=== PATIENT | female | born 1965 | race Caucasian/White ===

== ENCOUNTER → 2025-04-19 12:18 | Outpatient (REF) | payer OTHER, SELFPAY | LOC: RAD 12:18 | PROVIDERS: ATTENDING PHYSICIAN Surgery; FAMILY PHYSICIAN Family Medicine | DX: K43.2 Incisional hernia without obstruction or gangrene (principal); K46.9 Unspecified abdominal hernia without obstruction or gangrene | CPT/HCPCS: 74177; Q9967 ==

== ENCOUNTER 2025-07-21 04:31 | Inpatient (IN) | payer OTHER, SELFPAY ==
[2025-07-20 22:28] VITALS: BMI 19.2
[2025-07-20 22:35] VITALS: BP 107/68
--- NOTE | 2025-07-20 23:55 | ED.GENMED ---
History of Present Illness
General
Chief Complaint: Abdominal Pain
Source: patient
Exam Limitations: none
Time Seen by Provider: 07/20/25 23:48
Nursing documentation reviewed up to this point in time: agreed with
History of Present Illness
History of Present Illness:
Patient to emergency department with complaint of severe upper abdominal pain. She states her symptoms started this morning. She has had multiple SBO in the past and feels her symptoms are very similar. She denies any fever or chills. She
reports nausea and vomiting. She has past medical history of colon cancer 2016. She has a colostomy. Reports very little output from colostomy currently. Brought to the emergency department by spouse for evaluation.
Past History
Past History
ED Past Medical History: Cancer (Colon cancer 2016), Other (Migraines) and Other (Colon cancer with bowel resection 2003, colostomy and reversal, radiation and chemotherapy, recurrent small bowel obstructions)
ED Past Surgical History: Cholecystectomy
Social History
Tobacco: Non-smoker
Alcohol: None
Personal:
Family History
Family History: Other (Colon cancer in a grandfather)
Review of Systems
Review of Systems
Allergies reviewed?: Yes
All Other Systems: ROS reviewed and negative except as documented in HPI and ROS
Constitutional: Reports no symptoms
EENT: Reports no symptoms
Respiratory: Reports no symptoms
Cardiac: Reports no symptoms
ABD/GI: Reports abdominal pain (Upper abdominal pain), nausea and vomiting
: Reports no symptoms
Musculoskeletal: Reports no symptoms
Skin: Reports no symptoms
Neurological: Reports no symptoms
Psychiatric: Reports no symptoms
Phy Exam
General Physical Exam
General Presentation: moderate distress
General age: appears stated age
General Skin: warm and dry
General Habitus: normal
General Mental: alert
Cardiovascular Exam
Cardiovascular Exam: regular rate/rhythm and no edema
Gastrointestinal Exam
Gastrointestinal Exam: normal bowel sounds, soft, no organomegaly, no pulsatile mass and non distended
Palpation: left upper quadrant: Moderate tenderness, left lower quadrant: Mild tenderness, right upper quadrant: Moderate tenderness and right lower quadrant: Mild tenderness
Musculoskeletal Exam
Musculoskeletal Exam: full ROM and neuro vasc intact
Skin Exam
Skin Exam: normal color, warm/dry and no rash
Psychiatric Exam
Psychiatric Exam: normal mood/affect
Course
Orders/Labs/Results
Orders:
Orders
07/20/25 23:49
Urinalysis Reflex To Culture Urgent
Date Specimen was Collected: 07/21/25
Time Specimen was Collected: 02:43
07/20/25 23:54
0.9% Sodium Chloride 1000 ml [Nss] 1,000 ml IV BOLUS
HYDROmorphone [Dilaudid] 0.5 mg IV NOW STA
Ondansetron Injectable [Zofran] 4 mg IV NOW STA
07/20/25 23:56
Complete Blood Count/With Diff Urgent
Comprehensive Metabolic Panel Urgent
Lipase Urgent
07/21/25 00:00
CT Abd/pelvis W Iv Cont Urgent
Reason For Exam: abdominal pain
07/21/25 02:48
Urine Microscopic Reflex Cult Urgent
07/21/25 04:15
HYDROmorphone [Dilaudid] 0.5 mg IV NOW STA
CR Chest Portable - 1 View Urgent
Comment:
Reason For Exam: check nasogastric tube positioning
Reason Study Needs to be Portable: Unable to Transport
07/21/25 04:24
Admit/Transfer Patient As Directed
Co-Sign Provider:
Level of Care: Inpatient admission
Assign to:: Medical/Surgical
Physician / Group: Zaheer
Diagnosis: Small bowel obstruction
Reason for Hospitalization: Small bowel obstruction
Expected length of stay greater than two midnights?: Yes
ELOS- Estimated Length of Stay in days: 2
I certify the patient meets the requirements for IP care: Yes
PRN Pain Medication Management As Directed
May give lesser potent ordered pain med per pt: Yes
preference::
Protocol:: Medication orders for pain may be administered in a
manner that supports deferring to patient preference
when the pt is:
- Requesting an ordered lesser potent pain medication.
Least to most potent pain medications are defined
as: acetaminophen < NSAID < tramadol < opioids
(morphine, oxycodone, hydromorphone).
- Requesting a lesser dose of the same medication IF
ORDERED.
- Requesting a less intrusive route of administration
if both routes are prescribed by the provider (PO <
IV).
07/21/25 04:25
Code Status As Directed
Resuscitation Status: Full Code
07/21/25 Breakfast
NPO
Allow oral meds: No
Allow clear liquids: Sips of Clears
07/21/25 06:27
Acetaminophen [Tylenol/Feverall] 650 mg RECTAL Q4HPRN PRN
Acetaminophen [Tylenol] 650 mg PO Q4HPRN PRN
Dextrose 5%/Lactringers 1000ML [D5lr] 1,000 ml IV 90 mls/hr
Ketorolac [Toradol] 10 mg IV Q6HPRN PRN
Ondansetron Injectable [Zofran] 4 mg IV Q6HPRN PRN
07/21/25 06:27
Activity As Directed
Activity Level: With Assistance
Intake/ Output As Directed
Frequency: Per unit guidelines
NG Tube [Gastrointestinal Tubes] As Directed
To suction?: Yes
Type of suction: Low intermittent
Vital Signs As Directed
Frequency: Per unit guidelines
Pulse Ox/spot Check [RESP] Routine
Quantity: 1
DX Deep Vein Thrombosis Video Routine
07/21/25 08:00
HYDROmorphone [Dilaudid] 0.5 mg IV Q4HPRN PRN
07/21/25 18:00
Enoxaparin Sodium [Lovenox] 40 mg SC QPM
07/22/25 07:38
Basic Metabolic Panel IN AM
Complete Blood Count/No Diff IN AM
Abnormal Lab Results
07/20/25 07/21/25
23:56 02:48
Absolute Lymphs (auto) 0.9 L 10^3/uL
(1.2-3.4)
Neutrophils % 80.1 H %
(42.2-75.2)
Lymphocytes % 12.0 L %
(20.5-51.1)
BUN 24 H mg/dl
(7-17)
Glucose 112 H mg/dl
(70-99)
Total Bilirubin 2.3 H mg/dl
(0.2-1.3)
Urine Ketones 3+ A
(Negative)
Urine Albumin (Reflex) 2+ A
(Neg - Trace)
07/20/25 23:56
07/20/25 23:56
Vital Signs
Initial and Last Documented VS:
Initial Vital Signs
Temp Pulse Resp BP Pulse Ox
98.1 F 92 18 107/68 98
07/20/25 22:35 07/20/25 22:35 07/20/25 22:35 07/20/25 22:35 07/20/25 22:35
Last Documented Vital Signs
Temp Pulse Resp BP Pulse Ox
97.9 F 72 16 110/69 99
07/22/25 15:30 07/22/25 15:30 07/22/25 15:30 07/22/25 15:30 07/22/25 15:30
*Radiology
Radiology exam reviewed: radiology read reviewed
*Pulse Oximetry
SaO2: 95
Oxygen Mode of Delivery: Room air
Patient hypoxic: no
*Critical Care Note
Total Time (30-74mins, 75-104mins- exclusive of procedures): Not Applicable
Update Note
Update Note:
Patient to the emergency department for evaluation of abdominal pain and vomiting. Symptoms started this a.m. and continue to worsen. She has a history of SBO in the past and feels her symptoms are similar. Vital signs are stable she remains
afebrile. Labs reviewed. CBC within normal limits. CMP with T. bili of 2.3. (Prior cholecystectomy). UA results are pending. CT of abdomen and pelvis was completed, report was reviewed. ' Fluid-filled small bowel loops dilated with clustered
and tethered small bowel in the pelvis likely underlying adhesions causing partial small bowel obstruction'. Discussed findings with patient. She will be admitted to the hospitalist service. She was given IV fluids and pain medications and the ED
and is resting comfortably. No vomiting while in ED.
ED Attending Note
-
Portions of this chart may have been created with voice recognition software.� Occasional wrong word or��sound alike� substitutions may have occurred due to the inherent limitations of voice recognition software.
Discharge Plan
Departure
Patient Disposition: Admit
Date of Disposition: 07/21/25
Time of Disposition: 02:51
Presentation/result/management discussed w/ accepting MD/DO: Hospitalist
Patient with high blood pressure during this ER visit?: No
Condition: Fair
Discharge Problem:
Partial small bowel obstruction
Interventions
Interventions:
*Risk Screen - Suicide Last Done: 07/20/25 22:35
*General Assessment Last Done: 07/20/25 22:35
*Neglect/Abuse Screening Last Done: 07/20/25 22:35
*ED COVID-19 Vaccine History Last Done: 07/20/25 23:00
*ED Influenza Vaccine History Last Done: 07/20/25 23:00
[facility] Risk Assessment Tool Last Done: 07/20/25 22:28
*Nursing Disposition Last Done: 07/21/25 06:28
SD-Iagqwg-Flimyyykel Assessment Last Done: 07/20/25 23:00
Discharge Date and Time
Discharge Date/Time: 07/21/25 06:28
[2025-07-21] VITALS (9 sets, daily range): BP systolic 87–123; BP diastolic 57–80
[2025-07-21] MEDS: NSS 1000 IV (00:01)
[2025-07-21 00:09] LABS: Hematocrit 38.3 % (37.0-47.0); Hemoglobin 13.3 g/dL (12.0-16.0); Mean Corp Hgb Conc. 34.7 g/dL (33.0-37.0); Mean Corpuscular Volume 83.3 fL (81.0-99.0); Nucleated Red Blood Cells % 0 %; Platelet Count 249 10^3/uL (130-400); Red Cell Dist. Width 12.1 % (11.5-14.5)
[2025-07-21 00:34] LABS: ALT (SGPT) 14 U/L (0-35); AST (SGOT) 24 U/L (14-36); Albumin 4.3 g/dl (3.5-5.0); Alkaline Phosphatase 73 U/L (38-126); Blood Urea Nitrogen 24 mg/dl (7-17); Calcium 9.5 mg/dl (8.4-10.2); Carbon Dioxide 27 mmol/L (22-30); Chloride 106 mmol/L (98-107); Estimated Creatinine Clearance 71 ml/min; Glucose 112 mg/dl (70-99); Lipase 79 U/L (23-300); Potassium 4.2 mmol/L (3.5-5.1); Sodium 137 mmol/L (135-145); Total Protein 6.7 g/dl (6.3-8.2); eGFR > 60.00
[2025-07-21 02:53] LABS: Urine Character Clear (Clear)
--- NOTE | 2025-07-21 04:01 | HPS.HSE ---
Family Physician
-
Family Physician: Alec Whitney MD
Chief Complaint
-
Abdominal pain
History of Present Illness
This is a 59-year-old female with past medical history significant for colon cancer status post hemicolectomy, colostomy and reversal, radiation and chemotherapy, recurrent small bowel obstructions, migraine headaches presenting to the emergency
department with acute episode of abdominal pain.
Patient reports that her kids CVA with abdominal pain associated with green emesis. She denied any diarrhea. She is any fevers or chills. She reports the pain is similar to episode when she had a small bowel obstruction in the past. She has had
multiple recurrent episodes of small bowel obstructions. She says she frequently gets them and manage she is at home and the last time she had to be hospitalized for small bowel obstruction was several years ago. She is still having abdominal pain
has been speaking despite Dilaudid in the ED.
In the emergency department she was afebrile, blood pressure 123/80 with a pulse of 68 and she was satting 98% on room air.
CBC was unremarkable stop electrolyte BUN/creatinine were all in normal range. LFTs were normal. Lipase was normal.
CT scan shows fluid filled small bowel loops dilated to 3.9 cm with clustered and tethered small bowel in in pelvis likely underlying adhesions causing partial small bowel obstruction. Small bowel resection with anastomosis in the left abdomen. No
pneumatosis or free air.
Medical History
Past Medical History
Past Medical History: Reports Cancer (Colon cancer ) and Other (Migraine)
Additional Past Medical History:
History of recurrent small bowel obstructions
Past Surgical History: Reports Bowel Resection (Bowel resection 2003, colostomy with reversal), Cholecystectomy and Gynocological (She will ligation)
Additional Past Surgical History:
Small ventral incisional hernia,
Social History
Tobacco: Non-smoker
Alcohol: None
Drug: None
Personal:
Living: With Family
Family History
Family History: Not pertinent
Allergies / Home Medications
Allergies reflects when Allergies were last updated in [facility].
Home Medications with original date entered in [facility]
Allergy/Medication List:
Allergies
Allergy/AdvReac Type Severity Reaction Status Date / Time
No Known Allergies Allergy Verified 06/10/19 08:28
Home Medications
ibuprofen 600 mg tablet 600 mg PO Q6HPRN PRN pain 11/16/16
metoclopramide HCl 10 mg tablet 10 mg PO PRN PRN nausea 11/16/16
ondansetron 4 mg disintegrating tablet 4 mg PO Q8HPRN PRN nausea 12/19/16
pantoprazole 20 mg tablet,delayed release (Protonix) 20 mg PO DAILY 12/19/16
sumatriptan 85 mg-naproxen 500 mg tablet (Treximet) 1 ea PO DAILY PRN migraines 12/19/16
sumatriptan succinate 50 mg tablet 50 mg PO PRN PRN migraines 12/19/16
prochlorperazine maleate 10 mg tablet 10 mg PO Q8HPRN PRN headache and nausea #12 tabs 06/10/19
sumatriptan succinate 50 mg tablet 50 mg PO PRN PRN migraine headache #14 tabs 06/10/19
Review of Systems
-
Constitutional: Reports No Symptoms
EENT: Reports No Symptoms
Respiratory: Reports No Symptoms
Cardiac: Reports No Symptoms
Abdomen/GI: Reports Abdominal Pain, Nausea and Vomiting
: Reports No Symptoms
Musculoskeletal: Reports No Symptoms
Skin: Reports No Symptoms
Neurological: Reports No Symptoms
Endocrine: Reports No Symptoms
Hematologic/Lymphatic: Reports No Symptoms
Psych: Reports No Symptoms
Physical Exam
Vital Signs
Vital Signs
Temp Pulse Resp BP Pulse Ox
97.8 F 68 11 123/80 98
07/21/25 02:51 07/21/25 00:47 07/21/25 00:47 07/21/25 02:42 07/21/25 00:47
Physical Exam
General: Well Developed, Well Nourished and No Apparent Distress
HEENT: NormoCephalic, Moist mucous membranes and Atraumatic
Respiratory: Clear
Cardiac: S1/S2 and Regular Rhythm; No Murmur or Rub
GI: Soft, Tender (Tenderness to palpation in the left lower quadrant), No Hepatosplenomegaly and Ostomy (decompressed ostomy bag); No Normal Bowel Sounds (Patient with somewhat normal active bowel sounds in the right upper quadrant but reduced bowel
sounds in the right lower quadrant left upper quadrant and left lower quadrant), Organomegaly or No Hernias
Rectal: Deferred by Provider
Genito-urinary: Deferred by me
Musculoskeletal: No Clubbing, No Cyanosis and No Edema
Skin: No Rash
Neuro: AO x 3 and Nonfocal/grossly intact
Hematologic/Lymphatic: No Lymphadenopathy
Laboratory Results
-
07/20/25 23:56
07/20/25 23:56
Laboratory Results
Total Bilirubin 2.3 mg/dl (0.2-1.3) H 07/20/25 23:56
AST 24 U/L (14-36) 07/20/25 23:56
ALT 14 U/L (0-35) 07/20/25 23:56
Alkaline Phosphatase 73 U/L (38-126) 07/20/25 23:56
Lipase Cancelled 07/20/25 23:58
Data Reviewed
-
CT Scan: Report Reviewed by me
Lab Data: Labs Reviewed by me
Old Records: Reviewed
Impression/Plan
-
IMPRESSION:
59-year-old with past medical history significant for colon cancer s/p resection, colostomy and reversal with failure of reversal and status post colostomy again, history of recurrent small bowel obstructions status post small bowel resection and
reanastomosis, presents to the emergency department with acute abdominal pain and tenderness with decreased p.o. intake, bilious emesis and found to have small bowel obstruction. CT scan is consistent with small bowel obstruction, likely partial at
this time and no transition point identified. Patient's exam is moderate with from abdomen, no rebound or guarding, there is decreased bowel sounds and a decompressed colostomy bag although there is stool in the residual colon.
PLAN:
Small bowel obstruction/partial small bowel obstruction
-Admit to MedSurg
-N.p.o. for now
-Pain control and antiemetics
-NG tube to low intermittent suction
-IV fluids
-Serial examinations
-General Surgery consult
DVT prophylaxis�Lovenox subcu
CODE STATUS�full code
[2025-07-21] MEDS: DILAUDID 0.5 MG IV ×4 (04:24→18:09)
[2025-07-21 05:05] LABS: Urine Red Blood Cell 0-2 /HPF (0-2); Urine White Cell 0-2 /HPF (0-5)
[2025-07-21] MEDS: TORADOL 10 MG IV (07:24)
[2025-07-21] MEDS: D5LR 1000 IV ×2 (07:24→18:10)
[2025-07-21] MEDS: IMITREX 6 MG SC (12:01)
--- NOTE | 2025-07-21 12:16 | CON.GS ---
Consultation
-
Date/Time Consultation Performed: 07/21/25 1015
Medical History
-
Chief Complaint: n/v
History of Present Illness:
Ms Deleon is a 59 yo female with a complicated surgical history secondary to rectal cancer with prior LAR and loop colostomy creation at [facility] in 2013 which was complicated by small bowel enterotomy with take back to the OR for exploratory laparotomy
and small bowel resection. She developed abscess and was managed with drains. She subsequently had chemo and XRT for her cancer and was then taken for colostomy reversal in 2014. Her recovery was again complicated and she was taken back to the OR
for colostomy creation once again. Her most recent colonoscopy was in 2022 and was without recurrence of cancer. Over the years, she has had many small bowel obstructions some requiring hospitalization and some that she has managed at home with
bowel rest. She presents this admission as she is having symptoms of a bowel obstruction but without improvement with her usual management at home. She has not had outputs of flatus/stool from her stoma and she was vomiting bilious emesis with
significant abdominal pain causing her to present. An NGT was placed in the ED with symptomatic relief of nausea. On exam, there is no distention or tenderness now present. The stoma is pink/viable but without flatus/stool in the appliance
currently.
Past Medical History
Past Medical History: Cancer (rectal ca s/p resection with colostomy then chemo/xrt) and Other (migraine, recurrent SBO's)
Past Surgical History: Bowel Resection (LAR with loop colostomy creation in 2013 at [facility], subsequent reversal in 2014 which failed and converted back to colostomy for fecal management ) and Other (EX lap with SBR 2013 for enterotomy from colon
surgery)
Social History
Tobacco: Former Smoker
Alcohol: Occasional
Family History
Family History: Cancer (colon ca in grandfather)
Allergies / Home Medications
Allergy/AdvReac Type Severity Reaction Status Date / Time
No Known Allergies Allergy Verified 06/10/19 08:28
�Medication �Instructions �Recorded �Confirmed �Type
ibuprofen 600 mg tablet 600 mg PO Q6HPRN PRN pain 11/16/16 07/21/25 History
metoclopramide HCl 10 mg tablet 10 mg PO PRN PRN nausea 11/16/16 07/21/25 History
ondansetron 4 mg disintegrating 4 mg PO Q8HPRN PRN nausea 12/19/16 07/21/25 History
tablet
pantoprazole 20 mg tablet,delayed 20 mg PO DAILY 12/19/16 07/21/25 History
release (Protonix)
sumatriptan 85 mg-naproxen 500 mg 1 ea PO DAILY PRN migraines 12/19/16 07/21/25 History
tablet (Treximet)
sumatriptan succinate 50 mg tablet 50 mg PO PRN PRN migraines 12/19/16 07/21/25 History
prochlorperazine maleate 10 mg 10 mg PO Q8HPRN PRN headache and 06/10/19 07/21/25 Rx
tablet nausea #12 tabs
sumatriptan succinate 50 mg tablet 50 mg PO PRN PRN migraine headache 06/10/19 Rx
#14 tabs
Review of Systems
-
History Source: Patient and Family
All other systems: Negative unless noted
A 10 point review of systems was completed, and was negative except as per HPI.
Physical Exam
Vital Signs
Temp Pulse Resp BP Pulse Ox
97.9 F 76 16 87/60 98
07/21/25 07:45 07/21/25 07:45 07/21/25 07:45 07/21/25 07:45 07/21/25 07:45
07/20/25 07/21/25 07/22/25
06:59 06:59 06:59
Actual Weight 52.3 kg
Body Mass Index (BMI) 19.2
Lab Results
07/20/25 23:56
07/20/25 23:56
WBC 7.6 10^3/uL (4.8-10.8) 07/20/25 23:56
Hgb 13.3 g/dL (12.0-16.0) 07/20/25 23:56
Hct 38.3 % (37.0-47.0) 07/20/25 23:56
Plt Count 249 10^3/uL (130-400) 07/20/25 23:56
Abs Immat Gran (auto) 0.0 10^3/uL (0-0.05) 07/20/25 23:56
Neutrophils % 80.1 % (42.2-75.2) H 07/20/25 23:56
Physical Exam
General: Well Developed and Well Nourished
HEENT: Normocephalic and Moist Mucous Membranes
Respiratory: Non Labored Respirations
GI: Soft, Non Tender, Non Distended and Other (NGT light bilous outputs. Stoma to left abdomen pink/viable with flat appliance (no flatus/stool))
Skin: Warm and Dry
Neuro: Awake, Alert and AO x 3
Psych: Calm
Data Reviewed
-
CT Scan: Image Personally Visualized and interpreted, Report Reviewed by me, Discussed with Physician, Discussed with Patient and Discussed with Family
Labs: Labs Reviewed by me, Discussed with Physician, Discussed with Patient and Discussed with Family
Old Records: Reviewed
Assessment / Plan
-
59 yo female with a h/o rectal cancer s/p LAR and colostomy with chemo/xrt with prior ex lap for SBR d/t enterotomy as well as failed reversal of colostomy and recurrent SBO's who presents with n/v/abdominal pain. CT abdomen is consistent with at
least a partial SBO likely secondary to adhesions in the pelvis. Anastomosis appears patent. No pneumatosis or free air. No evidence of bowel threat/compromise. NGT placed in the ED with relief in n/v/pain. No flatus/stool via stoma as of yet.
AFVSS. No leukocytosis.
Plan:
Continue with NGT for decompression
NPO with sips/chips for comfort
Follow stoma outputs/exams
Will follow for improvement with nonoperative measures at this time. If no interval improvement over the next 2 days, will plan PO contrast study to better evaluate.
--- NOTE | 2025-07-21 12:21 | W.PN.HOSP.TC ---
Today's Communication/Plan
-
Decompression
Monitor stoma output
Assessment / Plan
Assessment / Plan
Physical Exam
General: Well Developed and Well Nourished
HEENT: Normocephalic and Moist Mucous Membranes
Respiratory: Non Labored Respirations
GI: Soft, Non Tender, Non Distended and Other (NGT light bilous outputs. Stoma to left abdomen pink/viable with flat appliance (no flatus/stool))
Skin: Warm and Dry
Neuro: Awake, Alert and AO x 3
Psych: Calm
59-year-old with past medical history significant for colon cancer s/p resection, colostomy and reversal with failure of reversal and status post colostomy again, history of recurrent small bowel obstructions status post small bowel resection and
reanastomosis, presents to the emergency department with acute abdominal pain and tenderness with decreased p.o. intake, bilious emesis and found to have small bowel obstruction. CT scan is consistent with small bowel obstruction, likely partial at
this time and no transition point identified. Patient's exam is moderate with from abdomen, no rebound or guarding, there is decreased bowel sounds and a decompressed colostomy bag although there is stool in the residual colon.
PLAN:
Small bowel obstruction/partial small bowel obstruction
-Admit to MedSurg
-N.p.o. for now
-Pain control and antiemetics
-NG tube to low intermittent suction
-IV fluids
-Serial examinations
-General Surgery consult
-Follow stoma outputs/exams
-If no improvement in next two days - obtain CT with oral contrast
Migraines
� Add on sumatriptan as needed
DVT prophylaxis�Lovenox subcu
CODE STATUS�full code
Anticipated Discharge: > 48 hours
Subjective/Interval History
-
Date of Service: July 21, 2025
Abdomen feels less distended, feels slightly better with decompression
Objective Data
-
Labs:
Laboratory Results
07/20/25
23:56
Sodium 137
Potassium 4.2
Chloride 106
Carbon Dioxide 27
BUN 24 H
Creatinine 0.7
Glucose 112 H
Calcium 9.5
Total Bilirubin 2.3 H
AST 24
ALT 14
Alkaline Phosphatase 73
Vital Signs:
Vital Signs
Temp Pulse Resp BP Pulse Ox
97.9 F 76 16 87/60 98
07/21/25 07:45 07/21/25 07:45 07/21/25 07:45 07/21/25 07:45 07/21/25 07:45
I&O
07/20/25 07/21/25 07/22/25
06:59 06:59 06:59
Intake Total 1000 / 1000
Output Total 500 / 500
Balance 500 / 500
Review of Systems
-
History Source: Patient
All other systems: Not reviewed unless documented
Data Reviewed
-
Diagnostic Radiology: Report Reviewed by me
CT Scan: Report Reviewed by me
Labs: Labs Reviewed by me
--- NOTE | 2025-07-21 17:17 | PTCARENOTE ---
While changing her colostomy, pt accidentally pulled out NG tube. Output this shift 150 mls, pain is better, no nausea. Dr. Virgen notified and pt will be observed off NG tube. Hospitalist notified.
[2025-07-21] MEDS: LOVENOX 40 MG SC (18:10)
[2025-07-21] MEDS: ZOFRAN 4 MG IV ×2 (20:23)
[2025-07-22] MEDS: DILAUDID 0.5 MG IV ×3 (03:24→20:15)
[2025-07-22] MEDS: D5LR 1000 IV ×2 (05:39→16:41)
[2025-07-22] MEDS: IMITREX 6 MG SC (07:44)
[2025-07-22 07:45] VITALS: BP 123/80
[2025-07-22 08:03] LABS: Hematocrit 35.0 % (37.0-47.0); Hemoglobin 11.4 g/dL (12.0-16.0); Mean Corp Hgb Conc. 32.6 g/dL (33.0-37.0); Mean Corpuscular Volume 86.8 fL (81.0-99.0); Platelet Count 188 10^3/uL (130-400); Red Cell Dist. Width 11.9 % (11.5-14.5)
--- NOTE | 2025-07-22 08:03 | PTCARENOTE ---
Pt c/o migraine, received MD order to give imitrex now, ordered daily prn. consulted with pharmacist to make sure there are no contraindications for administering within 24 hour period.
[2025-07-22 08:17] LABS: Blood Urea Nitrogen 18 mg/dl (7-17); Calcium 8.8 mg/dl (8.4-10.2); Carbon Dioxide 29 mmol/L (22-30); Chloride 108 mmol/L (98-107); Estimated Creatinine Clearance 71 ml/min; Glucose 104 mg/dl (70-99); Potassium 3.9 mmol/L (3.5-5.1); Sodium 139 mmol/L (135-145); eGFR > 60.00
[2025-07-22] MEDS: TORADOL 10 MG IV (10:19)
--- NOTE | 2025-07-22 12:25 | W.PN.HOSP.TC ---
Today's Communication/Plan
-
CLD - ADAT
Assessment / Plan
Assessment / Plan
Physical Exam
General: Well Developed and Well Nourished
HEENT: Normocephalic and Moist Mucous Membranes
Respiratory: Non Labored Respirations
GI: Soft, Non Tender, Non Distended and Other (NGT light bilous outputs. Stoma to left abdomen pink/viable with flat appliance (no flatus/stool))
Skin: Warm and Dry
Neuro: Awake, Alert and AO x 3
Psych: Calm
59-year-old with past medical history significant for colon cancer s/p resection, colostomy and reversal with failure of reversal and status post colostomy again, history of recurrent small bowel obstructions status post small bowel resection and
reanastomosis, presents to the emergency department with acute abdominal pain and tenderness with decreased p.o. intake, bilious emesis and found to have small bowel obstruction. CT scan is consistent with small bowel obstruction, likely partial at
this time and no transition point identified. Patient's exam is moderate with from abdomen, no rebound or guarding, there is decreased bowel sounds and a decompressed colostomy bag although there is stool in the residual colon.
PLAN:
Small bowel obstruction/partial small bowel obstruction
[facility]
-NGT misplaced 07/21 - was monitored off
-Pain control and antiemetics
-Trial CLD - ADAT
-IV fluids PRN
-Serial examinations
-General Surgery consult
-Follow stoma outputs/exams
-If no improvement in next two days - obtain CT with oral contrast
Migraines
� Add on sumatriptan as needed
DVT prophylaxis�Lovenox subcu
CODE STATUS�full code
Anticipated Discharge: 24 - 48 hours
Subjective/Interval History
-
Date of Service: July 22, 2025
no acute events overnight
Objective Data
-
Labs:
Laboratory Results
07/22/25
07:38
WBC 3.3 L
Hgb 11.4 L
Hct 35.0 L
Plt Count 188 D
Sodium 139
Potassium 3.9
Chloride 108 H
Carbon Dioxide 29
BUN 18 H
Creatinine 0.7
Glucose 104 H
Calcium 8.8
Vital Signs:
Vital Signs
Temp Pulse Resp BP Pulse Ox
98.6 F 76 16 123/80 98
07/22/25 07:45 07/22/25 07:45 07/22/25 07:45 07/22/25 07:45 07/22/25 07:45
I&O
07/21/25 07/22/25 07/23/25
06:59 06:59 06:59
Intake Total 1000 / 1000 2280 / 2280
Output Total 500 / 500 150 / 150
Balance 500 / 500 2130 / 2130
Review of Systems
-
History Source: Patient
All other systems: Not reviewed unless documented
Data Reviewed
-
Diagnostic Radiology: Report Reviewed by me
CT Scan: Report Reviewed by me
Labs: Labs Reviewed by me
--- NOTE | 2025-07-22 12:25 | W.PN.GS2 ---
Today's Communication / Plan
-
trial of clears
Assessment / Plan
-
59-year-old female with a likely adhesive small bowel obstruction. She has a history of rectal cancer requiring chemoradiation followed by resection in 2013 which was complicated by pelvic abscesses/?leak requiring surgical drainage and eventual
colostomy creation. She has had multiple small bowel obstructions over the years.
AFVSS
Labs stable
NGT accidentally dislodged on 07/21, mild nausea intermittently but stoma now producing stool and some flatus
Some residual discomfort remains
Plan:
Trial of clears
IVF
Follow stoma outputs/exams
Will follow for improvement with nonoperative measures at this time
d/w hospitalist at bedside
Subjective Data
-
Date of Service: July 22, 2025
Pt seen and examined at bedside with Dr. Virgen. Occasional nausea but better than previous. No vomiting since NGT accidentally became dislodged. Passing stool and some flatus via stoma now. Some abdominal pain persists to the mid abdomen above the
umbilicus.
Objective Data
-
Intake and Output
07/21/25 07/22/25 07/23/25
06:59 06:59 06:59
Intake Total 1000 / 1000 2280 / 2280
Output Total 500 / 500 150 / 150
Balance 500 / 500 2130 / 2130
Intake:
Oral fluids 120 / 120
IV fluids (Total) 1000 / 1000 2160 / 2160
NSS Bolus 1000 / 1000
Output:
Gastrointestinal tube output ( 500 / 500 150 / 150
Total)
[place] Sump 150 / 150
Other:
Number of approximated MODERATE 1
amounts of urine
Vital Signs
Temp Pulse Resp BP Pulse Ox
98.6 F 76 16 123/80 98
07/22/25 07:45 07/22/25 07:45 12/07/25 07:45 07/22/25 07:45 07/22/25 07:45
Lab Results
07/22/25 07:38
07/22/25 07:38
Calcium 8.8 mg/dl (8.4-10.2) 07/22/25 07:38
Total Bilirubin 2.3 mg/dl (0.2-1.3) H 07/20/25 23:56
AST 24 U/L (14-36) 07/20/25 23:56
ALT 14 U/L (0-35) 07/20/25 23:56
Alkaline Phosphatase 73 U/L (38-126) 07/20/25 23:56
Total Protein 6.7 g/dl (6.3-8.2) 07/20/25 23:56
Albumin 4.3 g/dl (3.5-5.0) 07/20/25 23:56
Physical Exam
-
NAD
ABD soft, tender to mid abd above umbilicus, left abd stoma pink/viable with stool and minimal flatus in appliance
[2025-07-22 15:30] VITALS: BP 110/69
[2025-07-22] MEDS: ZOFRAN 4 MG IV (15:35)
[2025-07-22] MEDS: LOVENOX 40 MG SC (16:41)
[2025-07-22 23:00] VITALS: BP 101/66
[2025-07-23] MEDS: D5LR 1000 IV ×2 (04:53→18:22)
[2025-07-23] MEDS: TORADOL 10 MG IV (06:26)
[2025-07-23 07:00] VITALS: BP 97/62
[2025-07-23 07:43] LABS: Hematocrit 31.7 % (37.0-47.0); Hemoglobin 10.8 g/dL (12.0-16.0); Mean Corp Hgb Conc. 34.1 g/dL (33.0-37.0); Mean Corpuscular Volume 86.8 fL (81.0-99.0); Platelet Count 171 10^3/uL (130-400); Red Cell Dist. Width 11.7 % (11.5-14.5)
[2025-07-23 08:26] LABS: ALT (SGPT) 37 U/L (0-35); AST (SGOT) 57 U/L (14-36); Albumin 3.1 g/dl (3.5-5.0); Alkaline Phosphatase 97 U/L (38-126); Blood Urea Nitrogen 9 mg/dl (7-17); Calcium 8.6 mg/dl (8.4-10.2); Carbon Dioxide 29 mmol/L (22-30); Chloride 105 mmol/L (98-107); Estimated Creatinine Clearance 83 ml/min; Glucose 90 mg/dl (70-99); Potassium 3.5 mmol/L (3.5-5.1); Sodium 138 mmol/L (135-145); Total Protein 5.0 g/dl (6.3-8.2); eGFR > 60.00
--- NOTE | 2025-07-23 08:46 | W.PN.GS2 ---
Addendum entered and electronically signed by Jimmy Renteria MD 07/23/25 13:30:
I saw and examined the patient independently.
The Comic Book Writer's note was reviewed and I agree with the note, assessment and plan except where noted below.
Comment: This is a 59-year-old female who presents with abdominal pain, nausea and decreased ostomy output likely secondary to an adhesive small bowel obstruction in the setting of multiple prior ones all managed nonoperatively.
Will plan for a small bowel follow-through today.
Discussed the natural history of small bowel obstructions as well as both nonoperative and operative options/outcomes.
Routine stoma care.
General surgery will follow along with you.
Original Note:
Today's Communication / Plan
-
SBFT
Assessment / Plan
-
59-year-old female with a likely adhesive small bowel obstruction. She has a history of rectal cancer requiring chemoradiation followed by resection in 2013 which was complicated by pelvic abscesses/?leak requiring surgical drainage and eventual
colostomy creation. The colostomy was subsequently reversed but she had difficulty passing stools and eventually was converted back having a colostomy once more. She has had multiple small bowel obstructions over the years but feels this one has
been the most severe.
AFVSS
Labs stable
NGT accidentally dislodged on 07/21
Intermittent nausea and persistent abdominal discomfort
Stoma with some stool outputs but no flatus
Plan:
Clears for comfort
Will plan SBFT study today to further evaluation
Continue IVF
Follow stoma outputs/exams
Antiemetics/analgesics
Lovenox/SCDs for VTE ppx
Subjective Data
-
Date of Service: July 23, 2025
Pt seen and examined at bedside. Took in small amounts of clears yesterday with nausea yesterday evening. No nausea this morning. upper midline abdominal pain persists, requiring intermittent analgesics. Stoma without flatus, some soft stool in
appliance but not much. Some worsening bloating.
Objective Data
-
Intake and Output
07/22/25 07/23/25 07/24/25
06:59 06:59 06:59
Intake Total 2280 / 2280 1460 / 1460
Output Total 150 / 150
Balance 2130 / 2130 1460 / 1460
Intake:
Oral fluids 120 / 120 400 / 400
IV fluids (Total) 2160 / 2160 1060 / 1060
Output:
Gastrointestinal tube output ( 150 / 150
Total)
[place] Sump 150 / 150
Other:
Number of approximated MODERATE 1 3
amounts of urine
Number of approximated LARGE 2
amounts of urine
Vital Signs
Temp Pulse Resp BP Pulse Ox
98.5 F 70 20 97/62 98
07/23/25 07:00 07/23/25 07:00 07/23/25 07:00 07/23/25 07:00 07/23/25 07:00
Lab Results
07/23/25 07:14
07/23/25 07:14
Calcium 8.6 mg/dl (8.4-10.2) 07/23/25 07:14
Total Bilirubin 1.5 mg/dl (0.2-1.3) H 07/23/25 07:14
AST 57 U/L (14-36) H 07/23/25 07:14
ALT 37 U/L (0-35) H 07/23/25 07:14
Alkaline Phosphatase 97 U/L (38-126) 07/23/25 07:14
Total Protein 5.0 g/dl (6.3-8.2) L D 07/23/25 07:14
Albumin 3.1 g/dl (3.5-5.0) L 07/23/25 07:14
Physical Exam
-
NAD
ABD soft, tender to mid abd above umbilicus, mild right sided distention, left abd stoma pink/viable with minimal stool and no flatus in appliance
[2025-07-23] MEDS: DILAUDID 0.5 MG IV ×3 (09:53→22:09)
[2025-07-23] MEDS: ZOFRAN 4 MG IV (09:58)
--- NOTE | 2025-07-23 11:14 | W.PN.HOSP.TC ---
Today's Communication/Plan
-
SBFT today
follow labs
Assessment / Plan
Assessment / Plan
59yo F with PMHx of migraine, Hx of rectal CA s/p chemo and RT and resection in 2013 with complication of pelvic abscess and possible leak, requiring colostomy, Hx of recurrent SBO came with absent output from stoma and typical abd pain, found with
small bowel dilatation and fluid levels in the central abdomen considered suspicious for a partial small bowel obstruction. NGT dislodged and removed on 07/21/25. Patient remained with mild nausea and small output via colostomy.
A/P:
#Partial SBO
Advance diet as per genSx
currently conservative mgmt
SBPT as per surgical service
IVF
If worsening abd distension or nausea - replace NG tube
Follow and correct electrolytes
check TSH
#Migraines
cont home meds
#MIld anemia
#Mild recurrent leukopenia
monitor with CBC
No overt bleeding
#mild recurrent bilirubinemia
at least since 2016
check direct bili, LDH, retics
#Transaminitis
follow LFT as minimal elevation at this point.
CT with Surgically absent gallbladder. Prominence of the intrahepatic and extrahepatic bile ducts may be related to the previous cholecystectomy
DVT ppx Lovenox
Full code
I have spent at least 58min reviewing hcart, test results, communication with consultnats and providing direct patient care
Anticipated Discharge: > 48 hours
Subjective/Interval History
-
Date of Service: July 23, 2025
Objective Data
-
Labs:
Laboratory Results
07/23/25
07:14
WBC 3.1 L
Hgb 10.8 L
Hct 31.7 L
Plt Count 171
Sodium 138
Potassium 3.5
Chloride 105
Carbon Dioxide 29
BUN 9
Creatinine 0.6
Glucose 90
Calcium 8.6
Total Bilirubin 1.5 H
AST 57 H
ALT 37 H
Alkaline Phosphatase 97
Vital Signs:
Vital Signs
Temp Pulse Resp BP Pulse Ox
98.5 F 70 20 97/62 98
07/23/25 07:00 07/23/25 07:00 07/23/25 07:00 07/23/25 07:00 07/23/25 07:00
I&O
07/22/25 07/23/25 07/24/25
06:59 06:59 06:59
Intake Total 2280 / 2280 1460 / 1460
Output Total 150 / 150
Balance 2130 / 2130 1460 / 1460
Review of Systems
-
History Source: Patient
All other systems: Reviewed and negative
Physical Exam
-
General: Comfortable
HEENT: Normocephalic
Respiratory: Clear to Auscultation
Cardiac: Regular Rhythm
GI: Soft, Nontender, Nondistended and Ostomy
Neuro: Awake, Alert, Oriented and AO x 3
Psych: Calm
[2025-07-23 12:24] LABS: LDH 161 U/L (120-246)
[2025-07-23 14:32] LABS: Reticulocyte Count 1.4 % (0.4-2.8)
[2025-07-23 15:00] VITALS: BP 119/79
[2025-07-23] MEDS: OFIRMEV 100 IV ×2 (16:59→21:51)
--- NOTE | 2025-07-23 17:40 | CM ---
Addendum entered by Sunni Connelly 07/23/25 17:40:
Discharge POC: Anticipate home with no needs vs HH RN.
Original Note:
07/21/2025 5:01 PM (ET) Destiney Gallego: has SBO, had in past. Plan home no needs. Her dgtr is Rn at [facility] on floor.
[2025-07-23] MEDS: LOVENOX 40 MG SC (18:03)
[2025-07-23 23:15] VITALS: BP 121/74
[2025-07-24] MEDS: OFIRMEV 100 IV ×2 (03:46→11:19)
[2025-07-24] MEDS: IMITREX 6 MG SC (03:47)
[2025-07-24] MEDS: ZOFRAN 4 MG IV ×2 (04:49→16:58)
[2025-07-24] MEDS: D5LR 1000 IV (06:38)
[2025-07-24 07:30] VITALS: BP 116/71
[2025-07-24 08:57] LABS: Hematocrit 35.6 % (37.0-47.0); Hemoglobin 12.0 g/dL (12.0-16.0); Mean Corp Hgb Conc. 33.7 g/dL (33.0-37.0); Mean Corpuscular Volume 85.2 fL (81.0-99.0); Nucleated Red Blood Cells % 0 %; Platelet Count 191 10^3/uL (130-400); Red Cell Dist. Width 11.7 % (11.5-14.5)
[2025-07-24 09:46] LABS: ALT (SGPT) 59 U/L (0-35); AST (SGOT) 75 U/L (14-36); Albumin 3.7 g/dl (3.5-5.0); Alkaline Phosphatase 111 U/L (38-126); Blood Urea Nitrogen 7 mg/dl (7-17); Calcium 9.2 mg/dl (8.4-10.2); Chloride 103 mmol/L (98-107); Estimated Creatinine Clearance 83 ml/min; Glucose 91 mg/dl (70-99); Magnesium 1.7 mg/dl (1.6-2.3); Potassium 3.7 mmol/L (3.5-5.1); Sodium 138 mmol/L (135-145); Total Protein 6.0 g/dl (6.3-8.2); eGFR > 60.00
[2025-07-24 09:51] LABS: Carbon Dioxide 32 mmol/L (22-30)
--- NOTE | 2025-07-24 11:00 | PTCARENOTE ---
Morning RN left due to sickness, took over as primary RN.
[2025-07-24] MEDS: DILAUDID 0.5 MG IV ×2 (11:25→20:54)
[2025-07-24 11:33] VITALS: BMI 19.2
--- NOTE | 2025-07-24 11:39 | W.PN.HOSP.TC ---
Today's Communication/Plan
-
Ostomy with better output today. COntinue to follow labs and GenSx plan
Assessment / Plan
Assessment / Plan
59yo F with PMHx of migraine, Hx of rectal CA s/p chemo and RT and resection in 2013 with complication of pelvic abscess and possible leak, requiring colostomy, Hx of recurrent SBO came with absent output from stoma and typical abd pain, found with
small bowel dilatation and fluid levels in the central abdomen considered suspicious for a partial small bowel obstruction. NGT dislodged and removed on 07/21/25. Patient remained with mild nausea and small output via colostomy.
A/P:
#Partial SBO
Advance diet as per genSx
currently conservative mgmt
SBPT as per surgical service
IVF
If worsening abd distension or nausea - replace NG tube
Follow and correct electrolytes
check TSH
#Migraines
cont home meds
#MIld anemia
#Mild recurrent leukopenia
monitor with CBC
No overt bleeding
#mild recurrent bilirubinemia
at least since 2016
check direct bili, LDH, retics
#Transaminitis
follow LFT as minimal elevation at this point.
CT with Surgically absent gallbladder. Prominence of the intrahepatic and extrahepatic bile ducts may be related to the previous cholecystectomy
DVT ppx Lovenox
Full code
I have spent at least 58min reviewing hcart, test results, communication with consultnats and providing direct patient care
Anticipated Discharge: > 48 hours
Subjective/Interval History
-
Date of Service: July 24, 2025
Objective Data
-
Labs:
Laboratory Results
07/24/25
07:32
WBC 3.6 L
Hgb 12.0
Hct 35.6 L
Plt Count 191
Sodium 138
Potassium 3.7
Chloride 103
Carbon Dioxide 32 H
BUN 7
Creatinine 0.6
Glucose 91
Calcium 9.2
Total Bilirubin 1.5 H
AST 75 H
ALT 59 H
Alkaline Phosphatase 111
Vital Signs:
Vital Signs
Temp Pulse Resp BP Pulse Ox
98.0 F 64 16 116/71 98
07/24/25 07:30 07/24/25 07:30 07/24/25 07:30 07/24/25 07:30 07/24/25 07:30
I&O
07/23/25 07/24/25 07/25/25
06:59 06:59 06:59
Intake Total 1460 / 1460 2220 / 2220
Balance 1460 / 1460 2220 / 2220
Review of Systems
-
History Source: Patient
All other systems: Reviewed and negative
Physical Exam
-
General: Well Nourished and No Apparent Distress
Respiratory: Clear to Auscultation
Cardiac: Regular Rhythm
GI: Ostomy
Neuro: Awake, Alert, Oriented and AO x 3
Psych: Calm
[2025-07-24 11:55] VITALS: BP 118/76
--- NOTE | 2025-07-24 14:22 | PN.CDI ---
Addendum entered and electronically signed by Leo Gaona MD 07/24/25 16:46:
no update
Original Note:
CDI
- -
CDI:
Physician Documentation Request
Admit Date: 07/21/25 04:31
Dear Doctor Candelaria,
Please review the following and provide your response in the progress notes.
Clinical Indicators:
Height: 5 ft 5 in
Weight:115lb
BMI:19.2
If possible, please provide an associated diagnosis related to the abnormal BMI, such as:
Cachectic
Anorexia
- Other
Use of terms such as suspected, likely, concern for, or probable (associated with a specific diagnosis that is being evaluated, monitored, or treated as if it exists) are acceptable and can be coded in the inpatient setting, when documented at the
time of discharge.
Thank you,
Marita Lees RN
CDI Specialist
[place] [facility]
Please use your independent medical judgment in providing your response.
[2025-07-24 15:45] VITALS: BP 126/66
[2025-07-24] MEDS: LOVENOX 40 MG SC (17:00)
--- NOTE | 2025-07-24 17:32 | CM ---
SBO, Ostomy with better output today. DIsxharge POC: Anticipate Home with no needs vs HH RN.
--- NOTE | 2025-07-24 18:12 | W.PN.GS2 ---
Today's Communication / Plan
-
-- Trial of fulls, instructed to go slow
-- Continue IVF
Assessment / Plan
-
Patient is a 59 yo F p/w adhesive small bowel obstruction in the setting of dietary indiscretion
She has a history of rectal cancer requiring chemoradiation followed by resection in 2013 which was complicated by pelvic abscesses/?leak requiring surgical drainage and eventual colostomy creation. The colostomy was subsequently reversed but she
had difficulty passing stools and eventually was converted back having a colostomy once more. She has had multiple small bowel obstructions over the years but feels this one has been the most severe.
AFVSS
Labs reactive leukopenia, stable Hb, normal lytes and renal function
NGT accidentally dislodged on 07/21
Intermittent nausea and persistent abdominal discomfort
Stoma with some stool and flatus
Plan:
-- Trial of fulls, instructed to go slow
-- Continue IVF
-- OOB/ambulate
-- DVT: Lovenox/SCDs
Subjective Data
-
Date of Service: July 24, 2025
Passing loose stools and contrast via ostomy. Passing flatus via ostomy. Mild nausea, no episodes of vomiting. Occasional crampy abdominal pain.
Objective Data
-
Intake and Output
07/23/25 07/24/25 07/25/25
06:59 06:59 06:59
Intake Total 1460 / 1460 2220 / 2220 600 / 600
Balance 1460 / 1460 2220 / 2220 600 / 600
Intake:
Oral fluids 400 / 400 240 / 240 600 / 600
IV fluids (Total) 1060 / 1060 1680 / 1680
IV piggybacks 300 / 300
Other:
Number of approximated SMALL 1
amounts of urine
Number of approximated MODERATE 3 1 1
amounts of urine
Number of approximated LARGE 2
amounts of urine
Vital Signs
Temp Pulse Resp BP Pulse Ox
97.5 F 67 16 126/66 100
07/24/25 15:45 07/24/25 15:45 07/24/25 15:45 07/24/25 15:45 07/24/25 15:45
Lab Results
07/24/25 07:32
07/24/25 07:32
Calcium 9.2 mg/dl (8.4-10.2) 07/24/25 07:32
Magnesium 1.7 mg/dl (1.6-2.3) 07/24/25 07:32
Total Bilirubin 1.5 mg/dl (0.2-1.3) H 07/24/25 07:32
Direct Bilirubin 0.1 mg/dl (0.0-0.4) 07/24/25 07:32
AST 75 U/L (14-36) H 07/24/25 07:32
ALT 59 U/L (0-35) H 07/24/25 07:32
Alkaline Phosphatase 111 U/L (38-126) 07/24/25 07:32
Total Protein 6.0 g/dl (6.3-8.2) L 07/24/25 07:32
Albumin 3.7 g/dl (3.5-5.0) 07/24/25 07:32
Physical Exam
-
Gen: NAD
Abd: soft, mild tenderness in RIGHT mid-abdomen, ND, non-peritoneal, ostomy PPV - stool and flatus in appliance
Patient has a hernandez catheter: No
Patient has a central line: No
[2025-07-24] MEDS: D5/0.45%NSS with KCL 20 MEQ 1000 IV (20:53)
[2025-07-24 23:37] VITALS: BP 128/72
[2025-07-25] MEDS: ZOFRAN 4 MG IV ×2 (05:17→12:14)
[2025-07-25] MEDS: IMITREX 6 MG SC (06:15)
[2025-07-25 08:38] VITALS: BP 119/66
[2025-07-25 09:07] LABS: Hematocrit 36.5 % (37.0-47.0); Hemoglobin 12.5 g/dL (12.0-16.0); Mean Corp Hgb Conc. 34.2 g/dL (33.0-37.0); Mean Corpuscular Volume 84.9 fL (81.0-99.0); Nucleated Red Blood Cells % 0 %; Platelet Count 207 10^3/uL (130-400); Red Cell Dist. Width 11.7 % (11.5-14.5)
[2025-07-25 10:08] LABS: ALT (SGPT) 46 U/L (0-35); AST (SGOT) 42 U/L (14-36); Albumin 4.0 g/dl (3.5-5.0); Alkaline Phosphatase 100 U/L (38-126); Blood Urea Nitrogen 7 mg/dl (7-17); Calcium 9.1 mg/dl (8.4-10.2); Carbon Dioxide 29 mmol/L (22-30); Chloride 103 mmol/L (98-107); Estimated Creatinine Clearance 71 ml/min; Glucose 90 mg/dl (70-99); Potassium 3.9 mmol/L (3.5-5.1); Sodium 138 mmol/L (135-145); Total Protein 6.2 g/dl (6.3-8.2); eGFR > 60.00
--- NOTE | 2025-07-25 11:03 | W.PN.GS2 ---
Today's Communication / Plan
-
Fulls
Assessment / Plan
-
Patient is a 59 yo F p/w adhesive small bowel obstruction in the setting of dietary indiscretion
She has a history of rectal cancer requiring chemoradiation followed by resection in 2013 which was complicated by pelvic abscesses/?leak requiring surgical drainage and eventual colostomy creation. The colostomy was subsequently reversed but she
had difficulty passing stools and eventually was converted back having a colostomy once more. She has had multiple small bowel obstructions over the years but feels this one has been the most severe.
AFVSS
Labs reactive leukopenia, stable Hb, normal lytes and renal function
NGT accidentally dislodged on 07/21
Intermittent nausea and improved abdominal discomfort
Stoma with some stool and flatus
Plan:
-- Cont fulls for today
-- Continue IVF
-- OOB/ambulate
-- DVT: Lovenox/SCDs
Subjective Data
-
Date of Service: July 25, 2025
Abd pain mostly resolved, intermittent mild nausea with a small emesis early this am, small flatus in appliance
Objective Data
-
Intake and Output
07/24/25 07/25/25 07/26/25
06:59 06:59 06:59
Intake Total 2220 / 2220 1240 / 1240
Balance 2220 / 2220 1240 / 1240
Intake:
Oral fluids 240 / 240 840 / 840
IV fluids (Total) 1680 / 1680 400 / 400
IV piggybacks 300 / 300
Other:
Number of approximated SMALL 1
amounts of urine
Number of approximated MODERATE 1 1
amounts of urine
Number of immeasurable emeses? 1
Vital Signs
Temp Pulse Resp BP Pulse Ox
98.0 F 67 16 119/66 99
07/25/25 08:38 07/25/25 08:38 07/25/25 08:38 07/25/25 08:38 07/25/25 08:38
Lab Results
07/25/25 08:14
07/25/25 08:14
Calcium 9.1 mg/dl (8.4-10.2) 07/25/25 08:14
Magnesium 1.7 mg/dl (1.6-2.3) 07/24/25 07:32
Total Bilirubin 1.5 mg/dl (0.2-1.3) H 07/25/25 08:14
Direct Bilirubin 0.1 mg/dl (0.0-0.4) 07/24/25 07:32
AST 42 U/L (14-36) H 07/25/25 08:14
ALT 46 U/L (0-35) H 07/25/25 08:14
Alkaline Phosphatase 100 U/L (38-126) 07/25/25 08:14
Total Protein 6.2 g/dl (6.3-8.2) L 07/25/25 08:14
Albumin 4.0 g/dl (3.5-5.0) 07/25/25 08:14
Physical Exam
-
Gen: NAD
Abd: soft, nt, nd
Patient has a hernandez catheter: No
Patient has a central line: No
--- NOTE | 2025-07-25 11:32 | W.PN.HOSP.TC ---
Today's Communication/Plan
-
cont IVF
labs in AM
Assessment / Plan
Assessment / Plan
59yo F with PMHx of migraine, Hx of rectal CA s/p chemo and RT and resection in 2013 with complication of pelvic abscess and possible leak, requiring colostomy, Hx of recurrent SBO came with absent output from stoma and typical abd pain, found with
small bowel dilatation and fluid levels in the central abdomen considered suspicious for a partial small bowel obstruction. NGT dislodged and removed on 07/21/25. Patient remained with mild nausea and small output via colostomy.
A/P:
#Partial SBO
#Ileus
Advance diet as per genSx
currently conservative mgmt
SBPT as per surgical service
IVF
If worsening abd distension or nausea - replace NG tube
Follow and correct electrolytes
TSH WNL
#Migraines
cont home meds
#MIld anemia
#Mild recurrent leukopenia
monitor with CBC
No overt bleeding
#mild recurrent indirect bilirubinemia
at least since 2016
LDH, retics WNL = [place]
#Transaminitis
follow LFT as minimal elevation at this point.
CT with Surgically absent gallbladder. Prominence of the intrahepatic and extrahepatic bile ducts may be related to the previous cholecystectomy
DVT ppx Lovenox
Full code
I have spent at least 51min reviewing hcart, test results, communication with consultnats and providing direct patient care
Anticipated Discharge: > 48 hours
Subjective/Interval History
-
Date of Service: July 25, 2025
Objective Data
-
Labs:
Laboratory Results
07/25/25
08:14
WBC 3.4 L
Hgb 12.5
Hct 36.5 L
Plt Count 207
Sodium 138
Potassium 3.9
Chloride 103
Carbon Dioxide 29
BUN 7
Creatinine 0.7
Glucose 90
Calcium 9.1
Total Bilirubin 1.5 H
AST 42 H
ALT 46 H
Alkaline Phosphatase 100
Vital Signs:
Vital Signs
Temp Pulse Resp BP Pulse Ox
98.0 F 67 16 119/66 99
07/25/25 08:38 07/25/25 08:38 07/25/25 08:38 07/25/25 08:38 07/25/25 08:38
I&O
07/24/25 07/25/25 07/26/25
06:59 06:59 06:59
Intake Total 2220 / 2220 1240 / 1240
Balance 2220 / 2220 1240 / 1240
Review of Systems
-
History Source: Patient
All other systems: Reviewed and negative
Physical Exam
-
General: No Apparent Distress
HEENT: Normocephalic
Respiratory: Clear to Auscultation
Cardiac: Regular Rhythm
GI: Soft, Nontender and Ostomy
Neuro: Awake, Alert, Oriented and AO x 3
Psych: Calm
[2025-07-25 15:50] VITALS: BP 115/76
[2025-07-25] MEDS: D5/0.45%NSS with KCL 20 MEQ 1000 IV (18:09)
[2025-07-25] MEDS: MYLICON 80 MG PO (18:10)
[2025-07-25] MEDS: LOVENOX 40 MG SC (18:11)
[2025-07-25 23:27] VITALS: BP 104/70
[2025-07-26] MEDS: IMITREX 6 MG SC (06:17)
[2025-07-26 07:26] LABS: Hematocrit 35.8 % (37.0-47.0); Hemoglobin 12.0 g/dL (12.0-16.0); Mean Corp Hgb Conc. 33.5 g/dL (33.0-37.0); Mean Corpuscular Volume 85.2 fL (81.0-99.0); Nucleated Red Blood Cells % 0 %; Platelet Count 215 10^3/uL (130-400); Red Cell Dist. Width 11.9 % (11.5-14.5)
[2025-07-26] MEDS: MYLICON 80 MG PO ×2 (07:38→20:34)
[2025-07-26 07:59] LABS: ALT (SGPT) 50 U/L (0-35); AST (SGOT) 59 U/L (14-36); Albumin 3.8 g/dl (3.5-5.0); Alkaline Phosphatase 91 U/L (38-126); Blood Urea Nitrogen 6 mg/dl (7-17); Calcium 9.4 mg/dl (8.4-10.2); Carbon Dioxide 28 mmol/L (22-30); Chloride 105 mmol/L (98-107); Estimated Creatinine Clearance 71 ml/min; Glucose 84 mg/dl (70-99); Magnesium 1.9 mg/dl (1.6-2.3); Potassium 4.1 mmol/L (3.5-5.1); Sodium 139 mmol/L (135-145); Total Protein 6.0 g/dl (6.3-8.2); eGFR > 60.00
[2025-07-26 08:05] VITALS: BP 115/68
--- NOTE | 2025-07-26 09:28 | W.PN.GS2 ---
Today's Communication / Plan
-
`
Assessment / Plan
-
Assessment: 59 yo F p/w adhesive small bowel obstruction in the setting of dietary indiscretion
She has a history of rectal cancer requiring chemoradiation followed by resection in 2013 which was complicated by pelvic abscesses/?leak requiring surgical drainage and eventual colostomy creation. The colostomy was subsequently reversed but she
had difficulty passing stools and eventually was converted back having a colostomy once more. She has had multiple small bowel obstructions over the years but feels this one has been the most severe.
AFVSS
Clinically improving
Plan:
-- Trial on Low residue diet
-- dc IV fluids
Subjective Data
-
Date of Service: July 26, 2025
Patient seen and examined
Tolerating full liquids and would like to try some soft foods such scrambled eggs
Nervous about advancement of diet
Contrast passed via ostomy and she has since been passing flatus
Objective Data
-
Intake and Output
07/25/25 07/26/25 07/27/25
06:59 06:59 06:59
Intake Total 1240 / 1240 1360 / 1360
Balance 1240 / 1240 1360 / 1360
Intake:
Oral fluids 840 / 840 760 / 760
IV fluids (Total) 400 / 400 600 / 600
Other:
Number of approximated SMALL 1
amounts of urine
Number of approximated MODERATE 1 2
amounts of urine
Number of immeasurable emeses? 1
Vital Signs
Temp Pulse Resp BP Pulse Ox
98.4 F 69 16 115/68 98
07/26/25 08:05 07/26/25 08:05 07/26/25 08:05 07/26/25 08:05 07/26/25 08:05
Lab Results
07/26/25 06:12
07/26/25 06:12
Calcium 9.4 mg/dl (8.4-10.2) 07/26/25 06:12
Magnesium 1.9 mg/dl (1.6-2.3) 07/26/25 06:12
Total Bilirubin 1.4 mg/dl (0.2-1.3) H 07/26/25 06:12
Direct Bilirubin 0.1 mg/dl (0.0-0.4) 07/24/25 07:32
AST 59 U/L (14-36) H 07/26/25 06:12
ALT 50 U/L (0-35) H 07/26/25 06:12
Alkaline Phosphatase 91 U/L (38-126) 07/26/25 06:12
Total Protein 6.0 g/dl (6.3-8.2) L 07/26/25 06:12
Albumin 3.8 g/dl (3.5-5.0) 07/26/25 06:12
Physical Exam
-
NAD AAO x 3
ABD: Soft, not significantly distended, mild tenderness on palpation-nonlocalizing
Left-sided ostomy in place with significant air in appliance
--- NOTE | 2025-07-26 10:11 | W.PN.HOSP.TC ---
Today's Communication/Plan
-
no nausea/vomiting overnight
Sx started trial of solids
Assessment / Plan
Assessment / Plan
59yo F with PMHx of migraine, Hx of rectal CA s/p chemo and RT and resection in 2013 with complication of pelvic abscess and possible leak, requiring colostomy, Hx of recurrent SBO came with absent output from stoma and typical abd pain, found with
small bowel dilatation and fluid levels in the central abdomen considered suspicious for a partial small bowel obstruction. NGT dislodged and removed on 07/21/25. Patient remained with mild nausea and small output via colostomy. Eventually output
improved
A/P:
#Partial SBO
#Ileus
Advance diet as per genSx
currently conservative mgmt
SBPT as per surgical service
IVF
If worsening abd distension or nausea - replace NG tube
Follow and correct electrolytes
TSH WNL
#Migraines
cont home meds
#MIld anemia
#Mild recurrent leukopenia
monitor with CBC
No overt bleeding
#mild recurrent indirect bilirubinemia
at least since 2016
LDH, retics WNL = [place]
#Transaminitis
follow LFT as minimal elevation at this point.
CT with Surgically absent gallbladder. Prominence of the intrahepatic and extrahepatic bile ducts may be related to the previous cholecystectomy
DVT ppx Lovenox
Full code
I have spent at least 36min reviewing hcart, test results, communication with consultnats and providing direct patient care
Anticipated Discharge: Within 24 hours
Subjective/Interval History
-
Date of Service: July 26, 2025
Objective Data
-
Labs:
Laboratory Results
07/26/25
06:12
WBC 3.7 L
Hgb 12.0
Hct 35.8 L
Plt Count 215
Sodium 139
Potassium 4.1
Chloride 105
Carbon Dioxide 28
BUN 6 L
Creatinine 0.7
Glucose 84
Calcium 9.4
Total Bilirubin 1.4 H
AST 59 H
ALT 50 H
Alkaline Phosphatase 91
Vital Signs:
Vital Signs
Temp Pulse Resp BP Pulse Ox
98.4 F 69 16 115/68 98
07/26/25 08:05 07/26/25 08:05 07/26/25 08:05 07/26/25 08:05 07/26/25 08:05
I&O
07/25/25 07/26/25 07/27/25
06:59 06:59 06:59
Intake Total 1240 / 1240 1360 / 1360
Balance 1240 / 1240 1360 / 1360
Review of Systems
-
History Source: Patient
All other systems: Reviewed and negative
Physical Exam
-
General: No Apparent Distress
HEENT: Normocephalic
Cardiac: Regular Rhythm
GI: Soft, Nontender, Nondistended and Ostomy
Skin: Warm
Neuro: Awake, Alert, Oriented and AO x 3
Psych: Calm
[2025-07-26 15:08] VITALS: BP 112/71
--- NOTE | 2025-07-26 16:02 | CM ---
Chart reviewed; anticipate discharge within 24 hours; Case Management will monitor for discharge needs and support when identified
[2025-07-26] MEDS: LOVENOX SC (17:59)
[2025-07-26 23:14] VITALS: BP 108/56
--- NOTE | 2025-07-27 06:33 | PTCARENOTE ---
pt left abd quad palpated firm, small distention noted around stoma. Colostomy pink, no output scant amount of waxy white contrast dye. Pt c/o of discomfort to site. SBAR abd abd x-ray.
[2025-07-27 08:14] VITALS: BP 105/75
[2025-07-27] MEDS: MIRALAX 17 GRAMS PO ×2 (08:48→20:38)
--- NOTE | 2025-07-27 10:08 | W.PN.GS2 ---
Addendum entered and electronically signed by Carlin Robert MD 07/27/25 12:40:
Patient seen and examined.
Reports crampy abdominal pain and decreased ostomy output. No significant flatus and minimal contrast via ostomy over the past 12 hours. She reports an occasional crampy firmness more on the LEFT side of her abdomen. No nausea or vomiting. No
worsening abdominal distention. No fevers.
Gen: NAD
Abd: soft, tender around her ostomy, slightly more firm, ND, non-peritoneal, no flatus and minimal contrast in appliance
Patient is a 59 yo F p/w adhesive small bowel obstruction in the setting of dietary indiscretion
She has had multiple small bowel obstructions over the years but feels this one has been the most severe.
AVSS
No new labs
Cramping and less output from stoma today, no N/V. No clear reports of worsening symptoms with low residue diet, will continue as tolerated. Recommend a bowel regimen in the hopes of improving ostomy output.
Plan:
-- Low residue diet
-- Start bowel regimen with bid Miralax, enema this afternoon if no stoma outputs
-- Analgesics as needed
-- OOB/ambulate
D/w primary hospitalist while rounding on nursing unit
Original Note:
Today's Communication / Plan
-
bowel regimen
Assessment / Plan
-
Assessment: 59 yo F p/w adhesive small bowel obstruction in the setting of dietary indiscretion She has a history of rectal cancer requiring chemoradiation followed by resection in 2013 which was complicated by pelvic abscesses/?leak requiring
surgical drainage and eventual colostomy creation. The colostomy was subsequently reversed but she had difficulty passing stools and eventually was converted back having a colostomy once more. She has had multiple small bowel obstructions over the
years but feels this one has been the most severe.
AFVSS
Cramping and less output from stoma today
No n/v
Plan:
-- c/w Low residue diet
-- start bowel regimen with bid miralax, enema this afternoon if no stoma outputs
-- Analgesics as needed
D/w primary hospitalist while rounding on nursing unit
Subjective Data
-
Date of Service: July 27, 2025
Pt seen and examined at bedside with Dr. Robert. Denies n/v. Cramping pain now in left abdomen (previously epigastric, then right abdomen). Less output noted from stoma overnight.
Objective Data
-
Intake and Output
07/26/25 07/27/25 07/28/25
06:59 06:59 06:59
Intake Total 1360 / 1360
Output Total 660 / 660
Balance 1360 / 1360 -660 / -660
Intake:
Oral fluids 760 / 760
IV fluids (Total) 600 / 600
Output:
Urine, Voided 660 / 660
Other:
Number of approximated MODERATE 2 1
amounts of urine
Number of approximated LARGE 1
amounts of urine
Vital Signs
Temp Pulse Resp BP Pulse Ox
98.2 F 74 16 105/75 97
07/27/25 08:14 07/27/25 08:14 07/27/25 08:14 07/27/25 08:14 07/27/25 08:14
Lab Results
07/26/25 06:12
07/26/25 06:12
Calcium 9.4 mg/dl (8.4-10.2) 07/26/25 06:12
Magnesium 1.9 mg/dl (1.6-2.3) 07/26/25 06:12
Total Bilirubin 1.4 mg/dl (0.2-1.3) H 07/26/25 06:12
Direct Bilirubin 0.1 mg/dl (0.0-0.4) 07/24/25 07:32
AST 59 U/L (14-36) H 07/26/25 06:12
ALT 50 U/L (0-35) H 07/26/25 06:12
Alkaline Phosphatase 91 U/L (38-126) 07/26/25 06:12
Total Protein 6.0 g/dl (6.3-8.2) L 07/26/25 06:12
Albumin 3.8 g/dl (3.5-5.0) 07/26/25 06:12
Physical Exam
-
NAD AAO x 3
ABD: Soft, not significantly distended, mild tenderness on palpation near ostomy
Left-sided ostomy in place without much air in appliance, some contrast noted in bag
--- NOTE | 2025-07-27 11:01 | W.PN.HOSP.TC ---
Today's Communication/Plan
-
as per GenSx - cont PO intake, attempt laxatives and hope for stoma output - today minimal with no gas
Enema via stoma
Assessment / Plan
Assessment / Plan
59yo F with PMHx of migraine, Hx of rectal CA s/p chemo and RT and resection in 2013 with complication of pelvic abscess and possible leak, requiring colostomy, Hx of recurrent SBO came with absent output from stoma and typical abd pain, found with
small bowel dilatation and fluid levels in the central abdomen considered suspicious for a partial small bowel obstruction. NGT dislodged and removed on 07/21/25. Patient remained with mild nausea and small output via colostomy. Eventually output
improved, but then stopped again on 07/27/25
A/P:
#Partial SBO
#Ileus
Advance diet as per genSx
currently conservative mgmt
SBPT as per surgical service
IVF
If worsening abd distension or nausea - replace NG tube
Follow and correct electrolytes
TSH WNL
#Migraines
cont home meds
#MIld anemia
#Mild recurrent leukopenia
monitor with CBC
No overt bleeding
#mild recurrent indirect bilirubinemia
at least since 2017
LDH, retics WNL = [place]
#Transaminitis
follow LFT as minimal elevation at this point.
CT with Surgically absent gallbladder. Prominence of the intrahepatic and extrahepatic bile ducts may be related to the previous cholecystectomy
DVT ppx Lovenox
Full code
I have spent at least 36min reviewing hcart, test results, communication with consultnats and providing direct patient care
Anticipated Discharge: 24 - 48 hours
Subjective/Interval History
-
Date of Service: July 27, 2025
Objective Data
-
Vital Signs:
Vital Signs
Temp Pulse Resp BP Pulse Ox
98.2 F 74 16 105/75 97
07/27/25 08:14 07/27/25 08:14 07/27/25 08:14 07/27/25 08:14 07/27/25 08:14
I&O
07/26/25 07/27/25 07/28/25
06:59 06:59 06:59
Intake Total 1360 / 1360
Output Total 660 / 660
Balance 1360 / 1360 -660 / -660
Review of Systems
-
History Source: Patient
All other systems: Reviewed and negative
Abdomen/GI: Reports Abdominal Pain; Denies Vomiting
Physical Exam
-
General: Comfortable
HEENT: Normocephalic
Cardiac: Regular Rhythm
GI: Soft, Nondistended, Tender and Ostomy
Neuro: Awake, Alert, Oriented and AO x 3
Psych: Calm
[2025-07-27] MEDS: MILK OF MAGNESIA 30 ML PO (11:43)
--- NOTE | 2025-07-27 14:54 | CM ---
Chart reviewed; will continue to monitor for discharge needs
--- NOTE | 2025-07-27 16:00 | PTCARENOTE ---
Administered enema through stoma as ordered. Partial relief. Patient showered after procedure, new appliance placed on stoma.
[2025-07-27 16:10] VITALS: BP 92/65
[2025-07-27] MEDS: LOVENOX SC (17:21)
[2025-07-27] MEDS: XANAX 0.25 MG PO (19:11)
[2025-07-27 23:14] VITALS: BP 100/64
[2025-07-28] MEDS: MYLICON 80 MG PO ×2 (01:57→20:15)
[2025-07-28 07:55] VITALS: BP 97/64
--- NOTE | 2025-07-28 08:33 | W.PN.HOSP.TC ---
Today's Communication/Plan
-
ostomy with minimal output and episodic pain surrounding it. No nausea and vomiting in spite of oral intake
Cont mgmt as per GenSx
Assessment / Plan
Assessment / Plan
59yo F with PMHx of migraine, Hx of rectal CA s/p chemo and RT and resection in 2013 with complication of pelvic abscess and possible leak, requiring colostomy, Hx of recurrent SBO came with absent output from stoma and typical abd pain, found with
small bowel dilatation and fluid levels in the central abdomen considered suspicious for a partial small bowel obstruction. NGT dislodged and removed on 07/21/25. Patient remained with mild nausea and small output via colostomy. Eventually output
improved, but then stopped again on 07/27/25
A/P:
#Partial SBO
#Ileus
Advance diet as per genSx
currently conservative mgmt
SBPT as per surgical service
IVF
If worsening abd distension or nausea - replace NG tube
Follow and correct electrolytes
TSH WNL
#Migraines
cont home meds
#MIld anemia
#Mild recurrent leukopenia
monitor with CBC
No overt bleeding
#mild recurrent indirect bilirubinemia
at least since 2016
LDH, retics WNL = [place]
#Transaminitis
follow LFT as minimal elevation at this point.
CT with Surgically absent gallbladder. Prominence of the intrahepatic and extrahepatic bile ducts may be related to the previous cholecystectomy
DVT ppx Lovenox
Full code
I have spent at least 36min reviewing hcart, test results, communication with consultnats and providing direct patient care
Anticipated Discharge: 24 - 48 hours
Subjective/Interval History
-
Date of Service: July 28, 2025
Objective Data
-
Vital Signs:
Vital Signs
Temp Pulse Resp BP Pulse Ox
97.9 F 71 18 100/64 98
07/27/25 23:14 07/27/25 23:14 07/27/25 23:14 07/27/25 23:14 07/27/25 23:14
I&O
07/27/25 07/28/25 07/29/25
06:59 06:59 06:59
Intake Total 600 / 600
Output Total 660 / 660
Balance -660 / -660 600 / 600
Review of Systems
-
History Source: Patient
All other systems: Reviewed and negative
Abdomen/GI: Reports Abdominal Pain (colics)
Physical Exam
-
General: No Apparent Distress
HEENT: Normocephalic
Respiratory: Clear to Auscultation
Cardiac: Regular Rhythm
GI: Soft, Nondistended, Tender and Ostomy (with minimal output); Negative Normal Bowel Sounds
Neuro: Awake, Alert, Oriented and AO x 3
Psych: Calm
[2025-07-28] MEDS: MIRALAX 17 GRAMS PO ×2 (09:11→20:09)
--- NOTE | 2025-07-28 11:02 | W.PN.GS2 ---
Today's Communication / Plan
-
fleet enema
Assessment / Plan
-
Assessment: 59 yo F p/w adhesive small bowel obstruction in the setting of dietary indiscretion She has a history of rectal cancer requiring chemoradiation followed by resection in 2013 which was complicated by pelvic abscesses/?leak requiring
surgical drainage and eventual colostomy creation. The colostomy was subsequently reversed but she had difficulty passing stools and eventually was converted back having a colostomy once more. She has had multiple small bowel obstructions over the
years but feels this one has been the most severe.
AFVSS
SBFT without obstruction on 07/23. Residual contrast in colon on f/u xr 07/25. Suspect underlying dysmotility playing a role
Low stoma outputs persist
Partial relief after M&M enema on 07/27
No n/v, tolerating diet
Plan:
-- c/w low residue diet
-- continue bowel regimen with bid miralax, fleet enema this am
-- Analgesics as needed
-- Medical management as per primary team
Subjective Data
-
Date of Service: July 28, 2025
Pt seen and examined at bedside with Dr. Renteria. Nahid n/v. Tolerating diet. Still with discomfort near stoma, no significant outputs since enema. Pain overall improved
Objective Data
-
Intake and Output
07/27/25 07/28/25 07/29/25
06:59 06:59 06:59
Intake Total 600 / 600
Output Total 660 / 660
Balance -660 / -660 600 / 600
Intake:
Oral fluids 600 / 600
Output:
Urine, Voided 660 / 660
Other:
Number of approximated MODERATE 1 2
amounts of urine
Number of approximated LARGE 1
amounts of urine
Vital Signs
Temp Pulse Resp BP Pulse Ox
98.7 F 69 16 97/64 98
07/28/25 07:55 07/28/25 07:55 07/28/25 07:55 07/28/25 07:55 07/28/25 07:55
Lab Results
07/26/25 06:12
07/26/25 06:12
Calcium 9.4 mg/dl (8.4-10.2) 07/26/25 06:12
Magnesium 1.9 mg/dl (1.6-2.3) 07/26/25 06:12
Total Bilirubin 1.4 mg/dl (0.2-1.3) H 07/26/25 06:12
Direct Bilirubin 0.1 mg/dl (0.0-0.4) 07/24/25 07:32
AST 59 U/L (14-36) H 07/26/25 06:12
ALT 50 U/L (0-35) H 07/26/25 06:12
Alkaline Phosphatase 91 U/L (38-126) 07/26/25 06:12
Total Protein 6.0 g/dl (6.3-8.2) L 07/26/25 06:12
Albumin 3.8 g/dl (3.5-5.0) 07/26/25 06:12
Physical Exam
-
NAD AAO x 3
ABD: Soft, not significantly distended, mild tenderness on palpation near ostomy
Left-sided ostomy in place without much air in appliance, some contrast noted in bag
[2025-07-28 15:15] VITALS: BP 95/64
[2025-07-28] MEDS: LOVENOX SC (17:05)
[2025-07-28] MEDS: FLEET PHOSPHATE ENEMA-ADULT 135 ML RECTAL (18:20)
[2025-07-28] MEDS: XANAX 0.25 MG PO (20:14)
[2025-07-28 23:22] VITALS: BP 107/59
[2025-07-29 07:33] LABS: Hematocrit 35.6 % (37.0-47.0); Hemoglobin 12.0 g/dL (12.0-16.0); Mean Corp Hgb Conc. 33.7 g/dL (33.0-37.0); Mean Corpuscular Volume 84.4 fL (81.0-99.0); Platelet Count 238 10^3/uL (130-400); Red Cell Dist. Width 12.0 % (11.5-14.5)
[2025-07-29 07:53] LABS: ALT (SGPT) 40 U/L (0-35); AST (SGOT) 39 U/L (14-36); Albumin 3.9 g/dl (3.5-5.0); Alkaline Phosphatase 85 U/L (38-126); Blood Urea Nitrogen 21 mg/dl (7-17); Calcium 9.3 mg/dl (8.4-10.2); Carbon Dioxide 25 mmol/L (22-30); Chloride 105 mmol/L (98-107); Estimated Creatinine Clearance 83 ml/min; Glucose 84 mg/dl (70-99); Magnesium 2.1 mg/dl (1.6-2.3); Sodium 136 mmol/L (135-145); Total Protein 6.4 g/dl (6.3-8.2); eGFR > 60.00
[2025-07-29 08:00] LABS: Potassium 4.3 mmol/L (3.5-5.1)
[2025-07-29 08:15] VITALS: BP 99/65
[2025-07-29] MEDS: MIRALAX 17 GRAMS PO ×2 (08:25→19:35)
[2025-07-29] MEDS: OMNIPAQUE 50 ML PO (09:44)
--- NOTE | 2025-07-29 10:03 | W.PN.GS2 ---
Today's Communication / Plan
-
enema
repeat CT
Assessment / Plan
-
Assessment: 59 yo F p/w adhesive small bowel obstruction in the setting of dietary indiscretion She has a history of rectal cancer requiring chemoradiation followed by resection in 2013 which was complicated by pelvic abscesses/?leak requiring
surgical drainage and eventual colostomy creation. The colostomy was subsequently reversed but she had difficulty passing stools and eventually was converted back having a colostomy once more. She has had multiple small bowel obstructions over the
years but feels this one has been the most severe.
AFVSS
SBFT without obstruction on 07/23. Residual contrast in colon on f/u xr 07/25. Suspect underlying dysmotility playing a role
Low stoma outputs and discomfort near stoma persist
Partial relief after enemas on 07/27 and 07/28
No n/v, tolerating diet
Plan:
-- c/w low residue diet
-- continue bowel regimen with bid miralax, fleet enema this am
-- Analgesics as needed
-- Given ongoing pain, will reepat CT abd/pelvis with PO contrast
-- Medical management as per primary team
Subjective Data
-
Date of Service: July 29, 2025
Pt seen and examined at bedside with Dr. Renteria. Denies n/v. Still with cramping pain near stoma. Passed stool/flatus after enema yesterday but without complete relief.
Objective Data
-
Intake and Output
07/28/25 07/29/25 07/30/25
06:59 06:59 06:59
Intake Total 600 / 600 1140 / 1140
Balance 600 / 600 1140 / 1140
Intake:
Oral fluids 600 / 600 1140 / 1140
Other:
Number of approximated MODERATE 2 2
amounts of urine
Vital Signs
Temp Pulse Resp BP Pulse Ox
97.7 F 68 16 99/65 98
07/29/25 08:15 07/29/25 08:15 07/29/25 08:15 07/29/25 08:15 07/29/25 08:15
Lab Results
07/29/25 06:52
07/29/25 06:52
Calcium 9.3 mg/dl (8.4-10.2) 07/29/25 06:52
Magnesium 2.1 mg/dl (1.6-2.3) 07/29/25 06:52
Total Bilirubin 0.9 mg/dl (0.2-1.3) 07/29/25 06:52
Direct Bilirubin 0.1 mg/dl (0.0-0.4) 07/24/25 07:32
AST 39 U/L (14-36) H 07/29/25 06:52
ALT 40 U/L (0-35) H 07/29/25 06:52
Alkaline Phosphatase 85 U/L (38-126) 07/29/25 06:52
Total Protein 6.4 g/dl (6.3-8.2) 07/29/25 06:52
Albumin 3.9 g/dl (3.5-5.0) 07/29/25 06:52
Physical Exam
-
NAD AAO x 3
ABD: Soft, not significantly distended, mild tenderness on palpation near ostomy
Left-sided ostomy in place with air in appliance, some contrast noted in bag
[2025-07-29 10:06] LABS: Nucleated Red Blood Cells % 0 %
--- NOTE | 2025-07-29 10:40 | W.PN.HOSP.TC ---
Today's Communication/Plan
-
CT abd
labs in AM
Assessment / Plan
Assessment / Plan
59yo F with PMHx of migraine, Hx of rectal CA s/p chemo and RT and resection in 2013 with complication of pelvic abscess and possible leak, requiring colostomy, Hx of recurrent SBO came with absent output from stoma and typical abd pain, found with
small bowel dilatation and fluid levels in the central abdomen considered suspicious for a partial small bowel obstruction. NGT dislodged and removed on 07/21/25. Patient remained with mild nausea and small output via colostomy. Eventually output
improved, but then stopped again on 07/27/25 with persistent LLQ abd pain
A/P:
#Partial SBO
#Ileus
Advance diet as per genSx
currently conservative mgmt
SBPT as per surgical service: ileus
CT abd planned for 07/29/25
IVF
If worsening abd distension or nausea - replace NG tube
Follow and correct electrolytes
TSH WNL
#Migraines
cont home meds
#MIld anemia
#Mild recurrent leukopenia
monitor with CBC
No overt bleeding
#mild recurrent indirect bilirubinemia
at least since 2016
LDH, retics WNL = [place]
#Transaminitis
follow LFT as minimal elevation at this point.
CT with Surgically absent gallbladder. Prominence of the intrahepatic and extrahepatic bile ducts may be related to the previous cholecystectomy
DVT ppx Lovenox
Full code
I have spent at least 36min reviewing hcart, test results, communication with consultnats and providing direct patient care
Anticipated Discharge: > 48 hours
Subjective/Interval History
-
Date of Service: July 29, 2025
Objective Data
-
Labs:
Laboratory Results
07/29/25
06:52
WBC 4.4 L
Hgb 12.0
Hct 35.6 L
Plt Count 238
Sodium 136
Potassium 4.3
Chloride 105
Carbon Dioxide 25
BUN 21 H
Creatinine 0.6
Glucose 84
Calcium 9.3
Total Bilirubin 0.9
AST 39 H
ALT 40 H
Alkaline Phosphatase 85
Vital Signs:
Vital Signs
Temp Pulse Resp BP Pulse Ox
97.7 F 68 16 99/65 98
07/29/25 08:15 07/29/25 08:15 07/29/25 08:15 07/29/25 08:15 07/29/25 08:15
I&O
07/28/25 07/29/25 07/30/25
06:59 06:59 06:59
Intake Total 600 / 600 1140 / 1140 660 / 660
Balance 600 / 600 1140 / 1140 660 / 660
Review of Systems
-
History Source: Patient
All other systems: Reviewed and negative
Physical Exam
-
General: No Apparent Distress
HEENT: Normocephalic
GI: Soft, Nondistended and Ostomy
Musculoskeletal: No Clubbing, No Cyanosis and No Edema
Skin: Warm
Psych: Calm
[2025-07-29] MEDS: FLEET PHOSPHATE ENEMA-ADULT 135 ML S (13:30)
[2025-07-29] MEDS: XANAX 0.25 MG PO ×2 (15:32→22:24)
[2025-07-29 15:45] VITALS: BP 90/57
[2025-07-29] MEDS: MILK OF MAGNESIA 30 ML PO (16:47)
[2025-07-29] MEDS: LOVENOX SC (18:07)
[2025-07-29] MEDS: SENOKOT-S 1 TABLET PO (22:20)
[2025-07-29 23:00] VITALS: BP 114/65
[2025-07-30 07:25] VITALS: BP 94/70
[2025-07-30 07:32] LABS: Hematocrit 38.8 % (37.0-47.0); Hemoglobin 12.8 g/dL (12.0-16.0); Mean Corp Hgb Conc. 33.0 g/dL (33.0-37.0); Mean Corpuscular Volume 86.6 fL (81.0-99.0); Nucleated Red Blood Cells % 0 %; Platelet Count 275 10^3/uL (130-400); Red Cell Dist. Width 12.1 % (11.5-14.5)
[2025-07-30 08:14] LABS: ALT (SGPT) 37 U/L (0-35); AST (SGOT) 33 U/L (14-36); Albumin 4.3 g/dl (3.5-5.0); Alkaline Phosphatase 86 U/L (38-126); Blood Urea Nitrogen 22 mg/dl (7-17); Calcium 9.5 mg/dl (8.4-10.2); Carbon Dioxide 27 mmol/L (22-30); Chloride 104 mmol/L (98-107); Estimated Creatinine Clearance 71 ml/min; Glucose 81 mg/dl (70-99); Magnesium 2.2 mg/dl (1.6-2.3); Potassium 4.6 mmol/L (3.5-5.1); Sodium 138 mmol/L (135-145); Total Protein 6.9 g/dl (6.3-8.2); eGFR > 60.00
--- NOTE | 2025-07-30 10:15 | W.PN.GS2 ---
Today's Communication / Plan
-
dispo planning
Assessment / Plan
-
Assessment: 59 yo F p/w adhesive small bowel obstruction in the setting of dietary indiscretion She has a history of rectal cancer requiring chemoradiation followed by resection in 2013 which was complicated by pelvic abscesses/?leak requiring
surgical drainage and eventual colostomy creation. The colostomy was subsequently reversed but she had difficulty passing stools and eventually was converted back having a colostomy once more. She has had multiple small bowel obstructions over the
years but feels this one has been the most severe.
AFVSS
SBFT without obstruction on 07/23. Residual contrast in colon on f/u xr 07/25. Suspect underlying dysmotility playing a role
Low stoma outputs and discomfort near stoma persist
Partial relief after enemas on 07/27 and 07/[address] on 07/29 without obstruction, contrast filling colon in imaging.
No n/v, tolerating diet
Plan:
-- c/w low residue diet
-- continue bowel regimen with bid miralax, prn senna
-- Analgesics as needed
-- Medical management as per primary team. Ok for d/c from surgical standpoint.
-- Recommend OP GI follow up
Subjective Data
-
Date of Service: July 30, 2025
Pt seen and examined at bedside with Dr. Renteria. Denies n/v. Still some discomfort near stoma but passing flatus/bm's from appliannce. Tolerating diet.
Objective Data
-
Intake and Output
07/29/25 07/30/25 07/31/25
06:59 06:59 06:59
Intake Total 1140 / 1140 1140 / 1140 100 / 100
Output Total 450 / 450
Balance 1140 / 1140 690 / 690 100 / 100
Intake:
Oral fluids 1140 / 1140 1140 / 1140 100 / 100
Output:
Liquid stool amount 450 / 450
Colostomy 450 / 450
Other:
Number of approximated MODERATE 2 2 2
amounts of urine
Vital Signs
Temp Pulse Resp BP Pulse Ox
98.4 F 73 16 94/70 96
07/30/25 07:25 07/30/25 07:25 07/30/25 07:25 07/30/25 07:25 07/30/25 07:25
Lab Results
07/30/25 07:03
07/30/25 07:03
Calcium 9.5 mg/dl (8.4-10.2) 07/30/25 07:03
Phosphorus 4.3 mg/dl (2.5-4.5) 07/30/25 07:03
Magnesium 2.2 mg/dl (1.6-2.3) 07/30/25 07:03
Total Bilirubin 1.0 mg/dl (0.2-1.3) 07/30/25 07:03
Direct Bilirubin 0.1 mg/dl (0.0-0.4) 07/24/25 07:32
AST 33 U/L (14-36) 07/30/25 07:03
ALT 37 U/L (0-35) H 07/30/25 07:03
Alkaline Phosphatase 86 U/L (38-126) 07/30/25 07:03
Total Protein 6.9 g/dl (6.3-8.2) 07/30/25 07:03
Albumin 4.3 g/dl (3.5-5.0) 07/30/25 07:03
Physical Exam
-
NAD AAO x 3
ABD: Soft, not significantly distended, mild tenderness on palpation near ostomy
Left-sided ostomy in place with air/loose stool in appliance, some contrast noted in bag
[2025-07-30] MEDS: MIRALAX 17 GRAMS PO (11:22)
[2025-07-30] MEDS: XANAX 0.25 MG PO (11:41)
--- NOTE | 2025-07-30 11:45 | W.DCSUMMARY ---
Discharge Summary
Discharge Data
Date of Admission: 07/21/25
Date of Discharge: 07/30/25
-
Pending Results: No
Hospital Course
59-year-old female with past medical history significant for colon cancer status post hemicolectomy, colostomy and reversal, radiation and chemotherapy, recurrent small bowel obstructions, migraine headaches
Presented with acute episode of abdominal pain. CT demonstrated small bowel loops dilated to 3.9 cm with clustered entire small bowel in the pelvis likely underlying adhesions leading to partial small bowel obstruction. Small bowel resection with
anastomosis in the left abdomen abdomen. Persistent free air.
Was seen by surgery NG tube was placed for decompression. IV fluids. Initially improved. However, on 07/27 output from colostomy stopped again. Again has been NPO. CT abdomen pelvis was completed on 07/29 without evidence of obstruction. Diet
was started and advance. Cleared for discharge.
CTAP
IMPRESSION:
Previous bowel resections. Now with small bowel dilatation and fluid levels in the central abdomen considered suspicious for a partial small bowel obstruction. Other possibilities would include an infectious/inflammatory enteritis or adynamic ileus.
Chronic findings, as detailed above.
CXR
FINDINGS/IMPRESSION:
The the enteric tube appears well-positioned with the tip and side-port below the level of the diaphragm, within the stomach.
Right Port-A-Cath with the catheter tip in the superior vena cava.
No focal consolidation, pleural effusion, or pneumothorax. The cardiomediastinal silhouette is normal. The osseous structures are unremarkable
SBO Xray
IMPRESSION: Mild focal small bowel dilatation, probable ileus. No evidence of intestinal obstruction. Mildly improved.
Mild fecal material in colon.
Left-sided colostomy.
AXray
IMPRESSION:
Moderate residual oral contrast as described above. Confirmation of contrast in the colostomy bag. Be performed with a lateral view of the anterior abdomen if indicated clinically.
No evidence of intestinal obstruction.
Abdominal CT
IMPRESSION: No evidence of intestinal obstruction. Oral contrast reaches the colostomy bag.
Moderate collection of inspissated barium in the left abdomen. Not the typical appearance for extraluminal oral contrast. This may be within a focally dilated loop of bowel secondary to previous surgery as was seen on 07/21/2025.
Postsurgical change in the presacral region.. Stable
Was seen and examined on day of discharge which was 07/30/2025.
No new complaints. No acute overnight events
Tolerating diet well
Cleared by GI for discharge
NAD
Scleral Anicteric
MMM
No JVD
CTABL
RRR, S1/S2
Soft, NT, ND, BS+
Colostomy CDI
Warm, Dry
AAOx3
Calm
Discharge Plan
-
Patient Disposition: Home with Home Care
Discharge Diagnosis/Procedures: partial sbo
Diet: As tolerated and Low Residue
Activity: As tolerated
Activity Restrictions/Additional Instructions:
Presented with acute episode of abdominal pain. CT demonstrated small bowel loops dilated to 3.9 cm with clustered entire small bowel in the pelvis likely underlying adhesions leading to partial small bowel obstruction. Small bowel resection with
anastomosis in the left abdomen abdomen. Persistent free air.
Was seen by surgery NG tube was placed for decompression. IV fluids. Initially improved. However, on 07/27 output from colostomy stopped again. Again has been NPO. CT abdomen pelvis was completed on 07/29 without evidence of obstruction. Diet
was started and advance. Cleared for discharge.
CTAP
IMPRESSION:
Previous bowel resections. Now with small bowel dilatation and fluid levels in the central abdomen considered suspicious for a partial small bowel obstruction. Other possibilities would include an infectious/inflammatory enteritis or adynamic ileus.
Chronic findings, as detailed above.
CXR
FINDINGS/IMPRESSION:
The the enteric tube appears well-positioned with the tip and side-port below the level of the diaphragm, within the stomach.
Right Port-A-Cath with the catheter tip in the superior vena cava.
No focal consolidation, pleural effusion, or pneumothorax. The cardiomediastinal silhouette is normal. The osseous structures are unremarkable
SBO Xray
IMPRESSION: Mild focal small bowel dilatation, probable ileus. No evidence of intestinal obstruction. Mildly improved.
Mild fecal material in colon.
Left-sided colostomy.
AXray
IMPRESSION:
Moderate residual oral contrast as described above. Confirmation of contrast in the colostomy bag. Be performed with a lateral view of the anterior abdomen if indicated clinically.
No evidence of intestinal obstruction.
Abdominal CT
IMPRESSION: No evidence of intestinal obstruction. Oral contrast reaches the colostomy bag.
Moderate collection of inspissated barium in the left abdomen. Not the typical appearance for extraluminal oral contrast. This may be within a focally dilated loop of bowel secondary to previous surgery as was seen on 07/21/2025.
Postsurgical change in the presacral region.. Stable
Referrals:
Alec Whitney MD [Family Provider, Family Practice]
Jimmy Renteria MD [Active, Surgical] - in one to two weeks
Prescriptions:
New
simethicone 80 mg Tablet,Chewable
80 mg PO TIDPRN PRN (Reason: bloating) Qty: 10 0RF
polyethylene glycol 3350 [Miralax] 17 gram/dose powder
4 g PO BID Qty: 510 0RF
Continued
ibuprofen 600 MG tablet
600 mg PO Q6HPRN PRN (Reason: pain)
sumatriptan succinate 50 MG tablet
50 mg PO PRN PRN (Reason: migraines)
pantoprazole [Protonix] 20 MG tablet,delayed release (DR/EC)
20 mg PO DAILY
ondansetron 4 MG tablet,disintegrating
4 mg PO Q8HPRN PRN (Reason: nausea)
sumatriptan-naproxen [Treximet] 1 EACH tablet
1 ea PO DAILY PRN (Reason: migraines)
prochlorperazine maleate 10 MG tablet
10 mg PO Q8HPRN PRN (Reason: headache and nausea) Qty: 12 1RF
Discharge Orders:
Discharge Patient (As Directed); Ordered 07/30/25
Ordered By: Yon Avalos
Discharge Date and Time
Print Language: MOHAWK
--- NOTE | 2025-07-30 11:57 | CM ---
Plan: Discharge to home today; will provide transport; no needs
[2025-07-30 12:25] VITALS: BP 107/64
--- NOTE | 2025-07-30 13:23 | PTCARENOTE ---
Patient ambulating in halls with a steady gait. Patient tolerating PO liquids and small amount of low residue diet. Colostomy draining liquid light brown stool and +flatus. No c/o pain, N/V. Patient eager to go home
== END 2025-07-30 13:47 | disposition home or self-care (01) | DRG 390 ==
LOC: 2 SOUTH 04:31
PROVIDERS: Internal Medicine; Nurse Practitioner; ADMITTING PHYSICIAN Internal Medicine; ATTENDING PHYSICIAN Hospitalist; EMERGENCY PHYSICIAN Emergency Medicine; FAMILY PHYSICIAN Family Medicine; OTHER PHYSICIAN Surgery
DX: K56.51 Intestinal adhesions [bands], with partial obstruction (principal); N73.6 Female pelvic peritoneal adhesions (postinfective); Z85.048 Personal history of other malignant neoplasm of rectum, rectosigmoid junction, and anus; Z90.49 Acquired absence of other specified parts of digestive tract; K56.7 Ileus, unspecified; Z80.0 Family history of malignant neoplasm of digestive organs; Z87.891 Personal history of nicotine dependence; E80.4 Gilbert syndrome
CPT/HCPCS: 43752; 71045; 74018; 74176; 74177; 74250; 80048; 80053; 81003; 81015; 82248; 83615; 83690; 83735; 84100; 84443; 85025; 85027; 85045; 96374; 96375; 99285; Q9967